=== PATIENT | female | born 1955 | race Caucasian/White ===

== ENCOUNTER → 2017-03-29 16:37 | Outpatient (CLI) | payer MEDICAID | END | disposition home or self-care (01) | LOC: D.MAMMO 03-06 11:30 | DX: Z12.31 Encounter for screening mammogram for malignant neoplasm of breast (principal) ==

== ENCOUNTER 2017-05-18 09:52 | Outpatient (CLI) | payer MEDICAID | END 2017-05-18 12:53 | LOC: D.MAMMO 09:52 | DX: R92.8 Other abnormal and inconclusive findings on diagnostic imaging of breast (principal) ==